=== PATIENT | male | born 1940 | race Caucasian/White ===

== ENCOUNTER 2016-10-14 19:28 | Observation (INO) | payer OTHER ==
[~2016-10-14] VITALS: Ht 172.7 cm; Wt 79.1 kg
[~2016-10-14 19:28] MED LIST: ALEVE220 M1 PO; ASPIR 8181 M1 PO; CARVEDILOL6.25 MG PO; CENTRUM SILVER1 EAC1 PO; Flexeril PO; Halfprin PO; LISINOPRIL10 MG PO; MAGNESIUM250 MG PO; PROTONIX40 MG PO; PYRIDOXINE,VIT100 MG PO; Percocet 7.5/325,End PO; THERAGRAN1 TABLET PO; Tylenol Regular Stre PO; ZESTRIL,PRINIVI10 M1 PO
[2016-10-14 19:59] LABS: HEMATOCRIT 41.9 % (38.0-50.0); MCHC 34.4 G/DL (30.0-36.0); MCV 87.3 FL (86-99); MEAN PLAT.VOLUME 9.4 uM^3 (9.0-12.4); PLATELET COUNT 237 K/uL (156-360); RBC DIS.WIDTH-CV 12.8 % (11.8-14.6); RBC DIS.WIDTH-SD 41.2 % (39-53); WHITE BLOOD COUNT 8.1 K/uL (4.1-10.2)
[2016-10-14 20:10] LABS: CHLORIDE 96 mEq/L (99-109); POTASSIUM 3.8 mEq/L (3.7-5.4); SODIUM 131 mEq/L (136-147)
[2016-10-14 20:11] LABS: GLUCOSE 112 mg/dL (70-99)
[2016-10-14 20:13] LABS: ANION GAP 13 MEQ/L (2-14)
[2016-10-14 20:15] LABS: GFR ESTIMATE (CALCULATED) > 59 mL/min/
[2016-10-14 20:16] LABS: UREA NITROGEN (BUN) 14 mg/dL (9-23)
[2016-10-14 20:22] LABS: TROP-I INTERPRETATION NEGATIVE; TROPONIN-I 0.03 ng/mL (0.0-0.30)
[2016-10-14 21:36] LABS: D-DIMER ELISA 0.27 mg/L FEU (< 0.57)
[2016-10-15] VITALS (7 sets, daily range): BP systolic 113–183; BP diastolic 62–85
[2016-10-15 02:55] LABS: TROP-I INTERPRETATION NEGATIVE; TROPONIN-I < 0.01 ng/mL (0.0-0.30)
[2016-10-15 04:47] LABS: HDL CHOLESTEROL 55 MG/DL (Desirable>=40); LDL CHOLESTEROL 102 mg/dL (Desirable<100); NON-HDL CHOLESTEROL 133 mg/dL (Desirable<160); TOTAL CHOLESTEROL 188 mg/dL (Desirable<200); TRIGLYCERIDES 157 MG/DL (Normal: <150)
[2016-10-15 08:32] LABS: TROP-I INTERPRETATION NEGATIVE; TROPONIN-I 0.01 ng/mL (0.0-0.30)
[2016-10-16 00:10] VITALS: BP 144/77
[2016-10-16 04:00] VITALS: BP 149/73
[2016-10-16 07:24] VITALS: BP 142/88
[2016-10-16 11:00] VITALS: BP 166/82
[2016-10-16] MEDS ORDERED: PANTOPRAZOLE SO40 MG PO (15:11)
== END 2016-10-16 15:32 | disposition home or self-care (01) ==
LOC: EME 19:28 → 5WEST 23:25 → EDOF 23:25 → 5WEST 10-15 00:30
PROVIDERS: Physician Assistant Medical
DX: R07.89 Other chest pain (principal); K22.10 Ulcer of esophagus without bleeding; K22.2 Esophageal obstruction; R13.10 Dysphagia, unspecified; K44.9 Diaphragmatic hernia without obstruction or gangrene; K21.9 Gastro-esophageal reflux disease without esophagitis; Z91.19 Patient's noncompliance with other medical treatment and regimen; I10 Essential (primary) hypertension; E78.5 Hyperlipidemia, unspecified; M19.90 Unspecified osteoarthritis, unspecified site; N40.0 Benign prostatic hyperplasia without lower urinary tract symptoms; Z87.891 Personal history of nicotine dependence
CPT/HCPCS: 71020; 80048; 80061; 84484; 85027; 85379; 88305; 93005; 94010; 94799; 99281; 99285; G0378; J1644; J2765; S0028